=== PATIENT | male | born 1990 | race Two or more races ===

== ENCOUNTER 2020-06-16 19:13 | Emergency (ER) | payer MEDICAID ==
[~2020-06-16] VITALS: Ht 167.6 cm; Wt 75.0 kg
[2020-06-16 19:55] VITALS: BP 146/92
[2020-06-16] MEDS ORDERED: acetaminophen 325mg tablet PO ONE (20:00)
[2020-06-16] MEDS ORDERED: LIDOcaine 1% W/epiNEPHrine 1:200,000 10ml vial IJ ONE (20:00)
[2020-06-16] MEDS ORDERED: ibuprofen tablet 400 MG TABLET PO ONE (20:00)
[2020-06-16] MEDS ORDERED: bacitracin 15gm ointment TP ONE (20:00)
[2020-06-16] MEDS ORDERED: cephalexin 250mg capsule PO ONE (20:35)
[2020-06-16] MEDS ORDERED: ONDA4TAB6 PO (20:37)
[2020-06-16] MEDS ORDERED: HYDR-3964 PO (20:37)
[2020-06-16] MEDS ORDERED: CEPH500C5 PO (20:37)
== END 2020-06-16 20:52 ==
LOC: ER 19:14
DX: S42.001A Fracture of unspecified part of right clavicle, initial encounter for closed fracture (principal); S61.411A Laceration without foreign body of right hand, initial encounter; S90.511A Abrasion, right ankle, initial encounter; M25.521 Pain in right elbow; Z79.899 Other long term (current) drug therapy; V29.9XXA Motorcycle rider (driver) (passenger) injured in unspecified traffic accident, initial encounter; Y93.89 Activity, other specified; Y92.488 Other paved roadways as the place of occurrence of the external cause; Y99.8 Other external cause status
CPT/HCPCS: 12002; 73030; 73080; 73130; 99284